=== PATIENT | female | born 1980 ===

== ENCOUNTER 2020-10-01 05:40 | Inpatient (IN) ==
[2020-10-01] MEDS ORDERED: Buffered Lidocaine 1% SYRIN 1 ml INTRADERM ONE (06:00)
[2020-10-01] MEDS ORDERED: Lactated Ringers 1000 ml BAG 1,000 ML IV SCH (06:00)
[2020-10-01] MEDS ORDERED: Hydrocortisone INJ 100 MG/2ML 2 ML VIAL IV ONE (06:00)
[2020-10-01] MEDS ORDERED: Heparin 5000 UNITS/ML 1 mL VIAL ONE (06:19)
[2020-10-01] MEDS ORDERED: Clindamycin 900 MG/D5W BAG 900 MG/50 ML BAG IVPB ONE (06:20)
[2020-10-01] MEDS ORDERED: Hydrocortisone INJ 100 MG/2ML 2 ML VIAL ONE (06:20)
[2020-10-01] MEDS ORDERED: Midazolam 5 mg/5 ml VIAL 1 mg/ml 5 ml VIAL (5 mg) ONE (06:58)
[2020-10-01] MEDS ORDERED: Propofol 10 MG/ML 20 ML BTL ONE (06:58)
[2020-10-01] MEDS ORDERED: fentaNYL 100 mcg/2 ml 50 MCG/ML VIAL ONE ×3 (06:58→09:19)
[2020-10-01] MEDS ORDERED: Lidocaine 2% PF 5 ML VIAL ONE (06:59)
[2020-10-01] MEDS ORDERED: Rocuronium 50 mg VIAL 10 mg/ml 5 ml VIAL (50 mg) ONE (06:59)
[2020-10-01] MEDS ORDERED: Bupivacaine 0.25% EPI 200,000 30 ML SDV ONE (07:07)
[2020-10-01] MEDS ORDERED: Naloxone 0.4 mg VIAL 0.4 mg/ml 1 ml VIAL IV PRN (07:13)
[2020-10-01] MEDS ORDERED: Prochlorperazine 5 mg/ml 2 ml VIAL (10 mg) IV PRN (07:13)
[2020-10-01] MEDS ORDERED: Morphine 4 MG/ML VIAL (1 ml) IV PRN (07:13)
[2020-10-01] MEDS ORDERED: Scopolamine PATCH Remove NOTE PATCH OFF SCH (08:00)
[2020-10-01] MEDS ORDERED: Phenylephrine 40 mcg/mL 10mL (400mcg) SYRINGE ONE (08:41)
[2020-10-01] MEDS ORDERED: Ondansetron 4 mg VIAL 2 MG/ML 2 ml VIAL ONE (08:45)
[2020-10-01] MEDS ORDERED: Sugammadex 500 MG/5 ML 5 ml VIAL IV PUSH ONE (08:52)
[2020-10-01] MEDS ORDERED: diPHENhydraMINE IV 50 MG/ML 1 ml VIAL (BENADRYL) SLOW PUSH PRN (09:06)
[2020-10-01] MEDS ORDERED: HYDROmorphone 0.5 MG/0.5 ML SYRINGE IV SLOW PU PRN (09:06)
[2020-10-01] MEDS ORDERED: HYDROcodone/ACET. 7.5/325 LIQ 15 ML UDC PO PRN (09:06)
[2020-10-01] MEDS ORDERED: HYDROmorphone 1 MG/1 ML SYRINGE IV SLOW PU PRN (09:13)
[2020-10-01] MEDS ORDERED: Prochlorperazine 5 mg/ml 2 ml VIAL (10 mg) ONE (09:19)
[2020-10-01] MEDS: fentaNYL 100 mcg/2 ml 50 MCG/ML VIAL IV PRN ×2 (09:37→09:55)
[2020-10-01] MEDS: Lactated Ringers 1000 ml BAG 1,000 ML IV SCH ×2 (10:42→18:13)
[2020-10-01] MEDS: Desmopressin 0.01% NASAL 5 ML BTL ALT NARE SCH ×3 (14:17→21:47)
[2020-10-01] MEDS: Heparin 5000 UNITS/ML 1 mL VIAL SUBCUT SCH ×2 (14:19→21:48)
[2020-10-01] MEDS: Ondansetron 4 mg VIAL 2 MG/ML 2 ml VIAL IV PRN ×2 (15:05→21:42)
[2020-10-01] MEDS ORDERED: Metoclopramide 5 MG/ML VIAL (10 mg) ONE (15:51)
[2020-10-01] MEDS: Famotidine IV 10 MG/ML 2 ml VIAL (20 mg) IV SLOW PU SCH (21:46)
[2020-10-02] MEDS: Lactated Ringers 1000 ml BAG 1,000 ML IV SCH (03:10)
[2020-10-02] MEDS: Ondansetron 4 mg VIAL 2 MG/ML 2 ml VIAL IV PRN ×2 (03:37→09:12)
[2020-10-02] MEDS: Desmopressin 0.01% NASAL 5 ML BTL ALT NARE SCH ×2 (09:12→12:52)
[2020-10-02] MEDS: Famotidine IV 10 MG/ML 2 ml VIAL (20 mg) IV SLOW PU SCH (09:12)
[2020-10-02] MEDS ORDERED: Enoxaparin 40 MG/0.4 ML SYR SUBCUT SCH (10:00)
[2020-10-02] MEDS ORDERED: D5W 1/2 NS KCl 20 meq 1000 ml 1,000 ML IV SCH (10:00)
[2020-10-02] MEDS ORDERED: Metoclopramide 5 MG/ML VIAL (10 mg) IV SLOW PU ONE (10:28)
[2020-10-02] MEDS ORDERED: Prochlorperazine 5 mg/ml 2 ml VIAL (10 mg) IV PRN (11:19)
[2020-10-02] MEDS ORDERED: Dexamethasone IV 4 MG/ML VIAL 1 ml VIAL IV SLOW PU SCH (12:00)
[2020-10-02 15:22] VITALS: BP 135/79
[2020-10-04] MEDS ORDERED: Scopolamine PATCH Remove NOTE PATCH OFF ONE (11:00)
== END 2020-10-02 17:50 | disposition home or self-care (01) | DRG 403 ==
LOC: AA 05:40 → SSU 10:35
PROVIDERS: ADMIT Surgery; ATTEND Surgery